=== PATIENT | male | born 1960 | race Caucasian/White ===

== ENCOUNTER 2016-11-25 08:30 | Day surgery (SDC) | payer OTHER ==
[~2016-11-25 08:30] MED LIST: PROPOFOL 500 MG/50 ML EMU IV ONE
[2016-11-25] MEDS ORDERED: PROPOFOL 10 MG/ML EMU IV ONE ×3 (09:45→10:07)
[2016-11-25 11:04] VITALS: BP 131/89; PULSE 54; RESP 20; TEMP 97.2; O2SAT 98
== END 2016-11-25 11:20 | disposition home or self-care (01) | DRG 951 ==
LOC: SURG 08:30
PROVIDERS: ATTEND Surgery
DX: Z12.11 Encounter for screening for malignant neoplasm of colon (principal); D12.5 Benign neoplasm of sigmoid colon; D12.8 Benign neoplasm of rectum
CPT/HCPCS: 99001; J2704